=== PATIENT | female | born 1955 | race Caucasian/White ===

== ENCOUNTER 2018-03-19 16:38 | Emergency (ER) | payer MEDICARE, MEDICAID ==
[~2018-03-19] VITALS: Ht 162.6 cm; Wt 120.6 kg
[~2018-03-19 16:38] MED LIST: ALBU18HF2 IH; CARCD120C PO; METF500T PO; PANT-47 PO
[2018-03-19 16:53] VITALS: BP 130/82
[2018-03-19 17:16] LABS: CLARITY,URINE SLIGHTLY CLOUDY (Clear); COLOR,URINE YELLOW (Yellow); GLUCOSE, URINE NEGATIVE (Neg); KETONES,URINE NEGATIVE (Neg); LEUKOCYTE ESTERASE ,URINE SMALL (Neg); NITRITES, URINE NEGATIVE (Neg); OCCULT BLOOD,URINE SMALL (Neg); PROTEIN,URINE NEGATIVE (Neg); UROBILINOGEN,URINE 0.2 E.U/dL (0.2-1.0)
[2018-03-19 17:18] LABS: UA COLLECTION TYPE CLN CATCH MIDSTREAM
[2018-03-19 17:23] LABS: BACTERIA,URINE FEW /HPF (Neg); MUCUS STRANDS FEW /LPF (Neg); RBC,URINE 0-2 /HPF (0-2); SQUAMOUS EPITHELIAL CELL,UR MODERATE /LPF (FEW)
[2018-03-19] MEDS ORDERED: PHEN-716 PO (17:35)
[2018-03-19] MEDS ORDERED: NITR100C6 PO (17:35)
== END 2018-03-19 17:55 | disposition home or self-care (01) ==
LOC: ER 16:39
DX: N39.0 Urinary tract infection, site not specified (principal); I25.2 Old myocardial infarction; I10 Essential (primary) hypertension; J44.9 Chronic obstructive pulmonary disease, unspecified; K21.9 Gastro-esophageal reflux disease without esophagitis; F12.90 Cannabis use, unspecified, uncomplicated; E11.9 Type 2 diabetes mellitus without complications; Z88.0 Allergy status to penicillin; Z79.84 Long term (current) use of oral hypoglycemic drugs
CPT/HCPCS: 81001; 87088; 99284; J7070

== ENCOUNTER 2018-04-13 16:44 | Emergency (ER) | payer MEDICARE, MEDICAID ==
[~2018-04-13] VITALS: Ht 162.6 cm; Wt 122.0 kg
[~2018-04-13 16:44] MED LIST changes: +NITR100C6 PO; +PHEN-716 PO
[2018-04-13 17:35] LABS: CLARITY,URINE Cloudy (Clear); COLOR,URINE Yellow (Yellow); GLUCOSE, URINE Negative (Neg); KETONES,URINE Negative (Neg); LEUKOCYTE ESTERASE ,URINE Large (Neg); NITRITES, URINE Negative (Neg); OCCULT BLOOD,URINE Trace (Neg); PH,URINE 5.5 (4.8-8.0); PROTEIN,URINE Negative (Neg)
[2018-04-13 17:36] LABS: URINE HCG NEGATIVE (NEG)
[2018-04-13 17:40] LABS: UA COLLECTION TYPE CLN CATCH MIDSTREAM
[2018-04-13 17:47] LABS: WBC,URINE 30-50 /HPF (0-4)
[2018-04-13 17:49] LABS: BACTERIA,URINE 4+ /HPF (Neg); MUCUS STRANDS MODERATE /LPF (Neg); RBC,URINE 0-2 /HPF (0-2); SQUAMOUS EPITHELIAL CELL,UR MANY /LPF (FEW)
[2018-04-13] MEDS ORDERED: CIPR-259 PO (18:28)
[2018-04-13 18:32] VITALS: BP 178/94
== END 2018-04-13 18:35 | disposition home or self-care (01) ==
LOC: ER 16:44
DX: R30.0 Dysuria (principal); R35.0 Frequency of micturition; F12.90 Cannabis use, unspecified, uncomplicated; I10 Essential (primary) hypertension; J44.9 Chronic obstructive pulmonary disease, unspecified; E11.9 Type 2 diabetes mellitus without complications; K21.9 Gastro-esophageal reflux disease without esophagitis; I25.2 Old myocardial infarction; M19.90 Unspecified osteoarthritis, unspecified site; Z95.0 Presence of cardiac pacemaker; Z88.0 Allergy status to penicillin; Z79.84 Long term (current) use of oral hypoglycemic drugs; Z79.899 Other long term (current) drug therapy
CPT/HCPCS: 81001; 81025; 99283

== ENCOUNTER 2018-09-16 00:28 | Emergency (ER) | payer MEDICARE, MEDICAID ==
[~2018-09-16] VITALS: Ht 162.6 cm; Wt 125.0 kg
[~2018-09-16 00:28] MED LIST changes: +PRED20TA PO
[2018-09-16 00:34] VITALS: BP 155/85
[2018-09-16] MEDS ORDERED: ketorolac trometh inj. 60 MG/2 ML VIAL IM ONE (00:55)
[2018-09-16] MEDS ORDERED: VAL5T PO (01:03)
== END 2018-09-16 01:25 | disposition home or self-care (01) ==
LOC: ER 00:29
DX: M43.6 Torticollis (principal); M62.838 Other muscle spasm; I25.10 Atherosclerotic heart disease of native coronary artery without angina pectoris; E78.00 Pure hypercholesterolemia, unspecified; I10 Essential (primary) hypertension; I25.2 Old myocardial infarction; J44.9 Chronic obstructive pulmonary disease, unspecified; K21.9 Gastro-esophageal reflux disease without esophagitis; E11.9 Type 2 diabetes mellitus without complications; M19.90 Unspecified osteoarthritis, unspecified site; F12.90 Cannabis use, unspecified, uncomplicated; Z87.891 Personal history of nicotine dependence; Z95.1 Presence of aortocoronary bypass graft; Z88.0 Allergy status to penicillin; Z79.899 Other long term (current) drug therapy
CPT/HCPCS: 96372; 99283; J1885

== ENCOUNTER 2018-09-18 16:31 | Emergency (ER) | payer MEDICARE, MEDICAID ==
[~2018-09-18] VITALS: Ht 162.6 cm; Wt 12.3 kg
[~2018-09-18 16:31] MED LIST changes: -PRED20TA PO; +VAL5T PO
[2018-09-18 17:01] VITALS: BP 162/80
[2018-09-18] MEDS ORDERED: proCHLORperazine 10 MG/2 ml inj IM ONE (18:25)
[2018-09-18] MEDS ORDERED: diphenhydrAMINE 25mg capsule PO ONE (18:25)
[2018-09-18] MEDS ORDERED: ORPH100T2 PO (18:35)
== END 2018-09-18 18:44 | disposition home or self-care (01) ==
LOC: ER 16:32
DX: G54.2 Cervical root disorders, not elsewhere classified (principal); I25.10 Atherosclerotic heart disease of native coronary artery without angina pectoris; E78.00 Pure hypercholesterolemia, unspecified; I10 Essential (primary) hypertension; I25.2 Old myocardial infarction; J44.9 Chronic obstructive pulmonary disease, unspecified; K21.9 Gastro-esophageal reflux disease without esophagitis; E11.9 Type 2 diabetes mellitus without complications; M19.90 Unspecified osteoarthritis, unspecified site; F12.90 Cannabis use, unspecified, uncomplicated; Z95.1 Presence of aortocoronary bypass graft; Z88.0 Allergy status to penicillin; Z79.84 Long term (current) use of oral hypoglycemic drugs; Z79.899 Other long term (current) drug therapy
CPT/HCPCS: 96372; 99283; J0780; Q0163

== ENCOUNTER 2018-10-14 19:26 | Emergency (ER) | payer MEDICARE, MEDICAID ==
[~2018-10-14] VITALS: Ht 162.6 cm; Wt 126.3 kg
[~2018-10-14 19:26] MED LIST changes: +ORPH100T2 PO
[2018-10-14 19:47] VITALS: BP 163/88
--- NOTE | 2018-10-14 22:29 | NUR ---
REGISTRATION ADVISED ME THAT PT IS WANTING TO LEAVE. AWARE.
[2018-10-15] MEDS ORDERED: CYCL-1 PO (18:25)
== END 2018-10-14 23:38 | disposition left against medical advice (07) ==
LOC: ER 19:26
DX: R51 Headache (principal); Z53.21 Procedure and treatment not carried out due to patient leaving prior to being seen by health care provider

== ENCOUNTER 2018-10-15 16:04 | Emergency (ER) | payer MEDICARE, MEDICAID ==
[~2018-10-15] VITALS: Ht 162.6 cm; Wt 126.3 kg
[2018-10-15 16:37] VITALS: BP 176/78
[2018-10-15] MEDS ORDERED: CYCL-1 PO (18:25)
[2018-10-15] MEDS ORDERED: morphine 4 MG/ML inj SYRINge IM ONE (18:35)
[2018-10-15] MEDS ORDERED: cyclobenzaprine 10mg tablet PO ONE (18:35)
[2018-10-15] MEDS ORDERED: ketorolac trometh. 30mg/ml inj. IM ONE (18:35)
== END 2018-10-15 19:29 | disposition home or self-care (01) ==
LOC: ER 16:04
DX: M54.2 Cervicalgia (principal); G43.909 Migraine, unspecified, not intractable, without status migrainosus; I25.10 Atherosclerotic heart disease of native coronary artery without angina pectoris; E78.00 Pure hypercholesterolemia, unspecified; I10 Essential (primary) hypertension; I25.2 Old myocardial infarction; J44.9 Chronic obstructive pulmonary disease, unspecified; K21.9 Gastro-esophageal reflux disease without esophagitis; E11.9 Type 2 diabetes mellitus without complications; M19.90 Unspecified osteoarthritis, unspecified site; F12.90 Cannabis use, unspecified, uncomplicated; Z90.89 Acquired absence of other organs; Z98.51 Tubal ligation status; Z87.891 Personal history of nicotine dependence; Z88.0 Allergy status to penicillin; Z79.84 Long term (current) use of oral hypoglycemic drugs; Z79.899 Other long term (current) drug therapy
CPT/HCPCS: 96372; 99283; J1885; J2270

== ENCOUNTER 2019-05-27 22:51 | Emergency (ER) | payer MEDICARE, MEDICAID ==
[~2019-05-27] VITALS: Ht 162.6 cm; Wt 119.0 kg
[~2019-05-27 22:51] MED LIST changes: +CYCL-1 PO; -VAL5T PO
[2019-05-27 22:53] VITALS: BP 160/91
[2019-05-27] MEDS ORDERED: ketorolac tromethamine 15mg/ml inj. IM ONE (23:20)
[2019-05-27] MEDS ORDERED: LIDOcaine 5% patch TP STA (23:20)
[2019-05-28] MEDS ORDERED: METH4TAB81 PO (17:06)
== END 2019-05-28 00:07 | disposition home or self-care (01) ==
LOC: ER 22:52
DX: M25.512 Pain in left shoulder (principal); R20.2 Paresthesia of skin; G43.909 Migraine, unspecified, not intractable, without status migrainosus; I25.10 Atherosclerotic heart disease of native coronary artery without angina pectoris; E78.00 Pure hypercholesterolemia, unspecified; I10 Essential (primary) hypertension; I25.2 Old myocardial infarction; J44.9 Chronic obstructive pulmonary disease, unspecified; K21.9 Gastro-esophageal reflux disease without esophagitis; E11.9 Type 2 diabetes mellitus without complications; M19.90 Unspecified osteoarthritis, unspecified site; F12.90 Cannabis use, unspecified, uncomplicated; Z98.51 Tubal ligation status; Z95.1 Presence of aortocoronary bypass graft; Z88.0 Allergy status to penicillin; Z79.84 Long term (current) use of oral hypoglycemic drugs; Z79.899 Other long term (current) drug therapy
CPT/HCPCS: 73030; 96372; 99283; J1885

== ENCOUNTER 2019-05-28 16:13 | Emergency (ER) | payer MEDICARE, MEDICAID ==
[~2019-05-28] VITALS: Ht 162.6 cm; Wt 119.5 kg
[2019-05-28 16:28] VITALS: BP 121/81
[2019-05-28] MEDS ORDERED: triamcinolone acetonide 40mg/ml inj IM ONE (17:00)
[2019-05-28] MEDS ORDERED: METH4TAB81 PO (17:06)
== END 2019-05-28 17:13 | disposition home or self-care (01) ==
LOC: ER 16:14
DX: M75.52 Bursitis of left shoulder (principal); G43.909 Migraine, unspecified, not intractable, without status migrainosus; I25.10 Atherosclerotic heart disease of native coronary artery without angina pectoris; E78.00 Pure hypercholesterolemia, unspecified; I10 Essential (primary) hypertension; I25.2 Old myocardial infarction; J44.9 Chronic obstructive pulmonary disease, unspecified; K21.9 Gastro-esophageal reflux disease without esophagitis; E11.9 Type 2 diabetes mellitus without complications; M19.90 Unspecified osteoarthritis, unspecified site; F12.90 Cannabis use, unspecified, uncomplicated; Z88.0 Allergy status to penicillin; Z79.899 Other long term (current) drug therapy; Z90.89 Acquired absence of other organs; Z98.51 Tubal ligation status; Z87.09 Personal history of other diseases of the respiratory system; Z95.1 Presence of aortocoronary bypass graft
CPT/HCPCS: 96372; 99283; J3301

== ENCOUNTER 2019-11-13 08:27 | Day surgery (SDC) | payer MEDICARE, MEDICAID ==
[2019-11-07 16:50] LABS: BASOPHILS # (AUTO) 0.1 X10'3 (0-0.2); BASOPHILS % (AUTO) 0.6 % (0-1); EOSINOPHILS # (AUTO) 0.2 X10'3 (0-0.9); EOSINOPHILS % (AUTO) 1.3 % (0-6); LYMPHOCYTES # (AUTO) 3.5 X10'3 (1.1-4.8); LYMPHOCYTES % (AUTO) 26.5 % (21-51); MEAN CORPUSCULAR HEMOGLOBIN 30.4 PG (27.0-31.0); MEAN CORPUSCULAR VOLUME 92.1 FL (78-98); MEAN PLATELET VOLUME 8.2 FL (7.4-10.4); MONOCYTES # (AUTO) 1.1 X10'3 (0-0.9); MONOCYTES % (AUTO) 8.3 % (2-12); NEUTROPHILS # (AUTO) 8.4 X10'3 (1.8-7.7); NEUTROPHILS % (AUTO) 63.3 % (42-75); PRE OP HEMATOCRIT 41.4 % (35.0-45.0); PRE OP HEMOGLOBIN 13.7 g/dL (12.0-16.0); PRE OP PLATELET COUNT 309 X10'3 (140-440); RED BLOOD COUNT 4.49 X10'6 (4.20-5.60); RED CELL DISTRIBUTION WIDTH 13.6 % (11.5-14.5)
[2019-11-07 17:01] LABS: ALBUMIN 3.8 G/DL (3.4-5.0); ALKALINE PHOSPHATASE 99 IU/L (46-116); BLOOD UREA NITROGEN 12 MG/DL (7-18); BUN/CREATININE RATIO 14.8 (6.6-38.0); CALCIUM 9.2 MG/DL (8.5-10.1); CHLORIDE 104 MMOL/L (99-107); CREATININE 0.81 MG/DL (0.40-0.90); PRE OP ALT 42 U/L (30-65); PRE OP ANION GAP 9 (8-16); PRE OP AST 28 U/L (10-37); PRE OP BILIRUB, TOTAL 0.7 MG/DL (0.0-1.0); PRE OP GLUCOSE 114 MG/DL (70-104); PRE OP POTASSIUM 4.5 MMOL/L (3.4-5.1); PRE OP SODIUM 141 MMOL/L (135-145); TOTAL PROTEIN 7.5 G/DL (6.4-8.2); eGFR 71 ML/MIN
[~2019-11-13] VITALS: Ht 162.6 cm; Wt 122.5 kg
[2019-11-13] VITALS (17 sets, daily range): BP systolic 95–153; BP diastolic 55–77
[~2019-11-13 08:27] MED LIST changes: +ATOR10TA70 PO; -CYCL-1 PO; +GENTAMICIN IV ONE; +LISI10TA4 PO; -NITR100C6 PO; +NORMAL SALINE IV ONE; -ORPH100T2 PO; -PANT-47 PO; -PHEN-716 PO; +albuterol 2.5 MG/3 ML nebule NEB ONE; +clindamycin-Cleocin 900mg/D5W 50 ML IV ONE; +famotidine 10mg tablet PO ONE; +ringers solution, lacted 1,000 ML IV SCH
[2019-11-13] MEDS ORDERED: ringers solution, lacted 1,000 ML IV SCH (10:05)
[2019-11-13] MEDS ORDERED: morphine 4 MG/ML inj SYRINge IV PRN ×2 (10:05)
[2019-11-13] MEDS ORDERED: acetaminophen 1,000mg/100ml IV 100 ML IV PRN (10:05)
[2019-11-13] MEDS ORDERED: labetalol 20mg/4ml (5mg/ml) syringe IV PRN (10:05)
[2019-11-13] MEDS ORDERED: meperidine/PF 25mg/ml syringe IV PRN ×2 (10:05)
[2019-11-13] MEDS ORDERED: proMETHazine 25mg rectal suppository RC PRN (10:05)
[2019-11-13] MEDS ORDERED: hydrALAZINE 20mg/ml inj. IV PRN (10:05)
[2019-11-13] MEDS ORDERED: ondansetron/PF 4mg/2ml inj IV PRN ×2 (10:05→13:10)
[2019-11-13] MEDS ORDERED: proCHLORperazine 10 MG/2 ml inj IV PRN (10:05)
[2019-11-13] MEDS ORDERED: ceFAZolin 1000mg inj ONE (11:20)
[2019-11-13] MEDS ORDERED: clindamycin phosphate 40gm vag cream ONE (11:20)
[2019-11-13] MEDS ORDERED: vasoPRESSIN 20 units/ml inj. ONE (11:21)
[2019-11-13] MEDS ORDERED: sevoflurane 250ml liquid IH ONE (11:28)
[2019-11-13] MEDS ORDERED: midazolam 2 mg/2 ml injection ONE (11:33)
[2019-11-13] MEDS ORDERED: LIDOcaine 2% (20mg/ml) 5ml vial ONE (11:55)
[2019-11-13] MEDS ORDERED: propofol inj 20 ML IV ONE (11:55)
[2019-11-13] MEDS ORDERED: fentaNYL/PF 50MCG/1 ML 2ML syringe ONE (11:56)
[2019-11-13] MEDS ORDERED: dexamethasone sod phosphate 4mg/ml inj. ONE (12:03)
[2019-11-13] MEDS ORDERED: ondansetron/PF 4mg/2ml inj ONE (12:03)
[2019-11-13] MEDS ORDERED: fluoroscein sod 10% (100mg/ml) 5ml vial ONE (12:31)
[2019-11-13] MEDS ORDERED: furosemide 40mg/4ml inj ONE (12:56)
[2019-11-13] MEDS ORDERED: diphenhydrAMINE 50 mg/ml inj IV PRN (13:10)
[2019-11-13] MEDS ORDERED: naloxone 0.4 mg/ml inj IV PRN (13:10)
[2019-11-13] MEDS ORDERED: HYDROcodone/acetaminophen 5mg/325mg tablet PO PRN ×2 (13:10)
[2019-11-13] MEDS ORDERED: CADD PCA waste documentation MC PRN (13:10)
[2019-11-13] MEDS ORDERED: temazepam 15mg capsule PO PRN (13:10)
[2019-11-13] MEDS ORDERED: LORazepam 2 mg/ml vial IV PRN (13:10)
[2019-11-13] MEDS ORDERED: normal saline 500ml IV soln 500 ML IV PRN (13:10)
[2019-11-13] MEDS ORDERED: ketorolac trometh. 30mg/ml inj. IV PRN (13:10)
--- NOTE | 2019-11-13 13:15 | NUR ---
ARRIVED IN PACU VIA GURNEY FROM OR VIA BED WITH DR GILBERT IN ATTENDANCE. REPORT RECEIVED. VS STABLE. PT MOANING IN PAIN
[2019-11-13] MEDS ORDERED: HYDROmorphone/NS 1 mg/ml CADD 50 ML IV SCH (13:24)
[2019-11-13] MEDS: meperidine/PF 25mg/ml syringe IV PRN ×3 (13:30→13:48)
--- NOTE | 2019-11-13 13:41 | NUR ---
SLEEPING IN INTERVALS. PAIN IMPROVING.
[2019-11-13] MEDS: HYDROmorphone/NS 1 mg/ml CADD 50 ML IV SCH ×5 (14:11→23:00)
--- NOTE | 2019-11-13 14:15 | NUR ---
SLEEPING IN INTERVALS. ONLY C/O PAIN WHEN AROUSED. VS STABLE. REPORT TO FLOOR. TO 360B
--- NOTE | 2019-11-13 14:30 | NUR ---
Received report from ALLA Car in recovery and patient arrived to floor in room 360B, on 3 L of O2. VSS. patient reports moderate pain, educated pt. 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 will continue to monitor.
[2019-11-13] MEDS ORDERED: albuterol 2.5 MG/3 ML nebule NEB PRN (15:15)
[2019-11-13] MEDS: ringers solution, lacted 1,000 ML IV SCH ×2 (17:50→21:10)
--- NOTE | 2019-11-13 18:43 | NUR ---
Problems reprioritized. Patient report given, questions answered & plan of care reviewed with ALLA Olson and ALLA Colby.
[2019-11-13] MEDS: metFORMIN 500mg tablet PO SCH (19:40)
[2019-11-14 00:32] VITALS: BP 103/55
[2019-11-14] MEDS: HYDROmorphone/NS 1 mg/ml CADD 50 ML IV SCH ×5 (00:56→09:00)
[2019-11-14] MEDS: ringers solution, lacted 1,000 ML IV SCH ×2 (03:41→15:22)
[2019-11-14 06:06] LABS: BASOPHILS % (AUTO) 0.2 % (0-1); EOSINOPHILS % (AUTO) 0 % (0-6); HEMATOCRIT 30.6 % (35.0-45.0); HEMOGLOBIN 10.1 g/dl (12.0-16.0); LYMPHOCYTES # (AUTO) 1.2 X10'3 (1.1-4.8); LYMPHOCYTES % (AUTO) 8.4 % (21-51); MEAN CORPUSCULAR HEMOGLOBIN 30.7 PG (27.0-31.0); MEAN CORPUSCULAR HGB CONC 33.2 g/dL (33.0-36.5); MEAN CORPUSCULAR VOLUME 92.5 FL (78-98); MEAN PLATELET VOLUME 8.7 FL (7.4-10.4); MONOCYTES # (AUTO) 0.5 X10'3 (0-0.9); MONOCYTES % (AUTO) 3.7 % (2-12); NEUTROPHILS # (AUTO) 12.9 X10'3 (1.8-7.7); NEUTROPHILS % (AUTO) 87.7 % (42-75); PLATELET COUNT 225 X10'3 (140-440); RED CELL DISTRIBUTION WIDTH 13.2 % (11.5-14.5); WHITE BLOOD COUNT 14.7 X10'3 (4.5-11.0)
[2019-11-14 06:08] LABS: ALANINE AMINOTRANSFERASE 41 U/L (12-78); ALBUMIN 2.9 G/DL (3.4-5.0); ALBUMIN/GLOBULIN RATIO 0.9 (1.1-1.5); ALKALINE PHOSPHATASE 75 IU/L (46-116); ANION GAP 7 (8-16); ASPARTATE AMINO TRANSFERASE 25 U/L (10-37); BILIRUBIN,TOTAL 0.5 MG/DL (0.1-1.0); BLOOD UREA NITROGEN 16 MG/DL (7-18); BUN/CREATININE RATIO 15.7 (6.6-38.0); CALCIUM 8.3 MG/DL (8.5-10.1); CHLORIDE 104 MMOL/L (99-107); CREATININE 1.02 MG/DL (0.40-0.90); GLUCOSE 168 MG/DL (70-104); POTASSIUM 4.8 MMOL/L (3.5-5.1); SODIUM 137 MMOL/L (135-145); TOTAL CARBON DIOXIDE 26.1 MMOL/L (24-32); eGFR 55 ML/MIN
--- NOTE | 2019-11-14 06:15 | NUR ---
Problems reprioritized. Patient report given, questions answered & plan of care reviewed with Jody rn.
--- NOTE | 2019-11-14 06:16 | NUR ---
Problems reprioritized. Patient report given, questions answered & plan of care reviewed with Ericka RN.
--- NOTE | 2019-11-14 06:16 | NUR ---
Patient in room [facility] 360. I have received report from ALLA Olson and had the opportunity to ask questions and assume patient care.
[2019-11-14 07:45] VITALS: BP 156/70
[2019-11-14] MEDS: metFORMIN 500mg tablet PO SCH (07:54)
[2019-11-14] MEDS ORDERED: lisinopril 10 MG tablet PO SCH (08:00)
[2019-11-14] MEDS ORDERED: atorvastatin 10mg tablet PO SCH (08:00)
[2019-11-14] MEDS ORDERED: diltiazem CD 120mg capsule (once-daily) PO SCH (08:00)
--- NOTE | 2019-11-14 09:00 | NUR ---
patient ambulating X3 this am, voided 100 cc, bladder scan now shows 10 mL residual in bladder. Instructed patient that each time she ambulates, she will need to void directly after and notify staff to check her residual.
[2019-11-14 12:00] VITALS: BP 124/58
== END 2019-11-14 17:46 | disposition home or self-care (01) ==
LOC: PAS 08:27 → SUR 3N 13:10 → PAS 11-14 17:46
PROVIDERS: ATTEND Specialist
DX: N81.11 Cystocele, midline (principal); N81.6 Rectocele; N39.3 Stress incontinence (female) (male); N36.42 Intrinsic sphincter deficiency (ISD); M19.90 Unspecified osteoarthritis, unspecified site; E11.9 Type 2 diabetes mellitus without complications; I25.2 Old myocardial infarction; I10 Essential (primary) hypertension; J44.9 Chronic obstructive pulmonary disease, unspecified; G43.909 Migraine, unspecified, not intractable, without status migrainosus; E66.9 Obesity, unspecified; Z68.42 Body mass index [BMI] 45.0-49.9, adult; F17.210 Nicotine dependence, cigarettes, uncomplicated; Z98.51 Tubal ligation status; Z79.899 Other long term (current) drug therapy; Z98.890 Other specified postprocedural states; Z79.01 Long term (current) use of anticoagulants; Z79.84 Long term (current) use of oral hypoglycemic drugs; Z88.0 Allergy status to penicillin; Z83.3 Family history of diabetes mellitus; Z82.49 Family history of ischemic heart disease and other diseases of the circulatory system
CPT/HCPCS: 36415; 57260; 57288; 80053; 82948; 85025; 85610; 85730; 86885; 86900; 86901; 87081; 94760; C1771; J0690; J1100; J1170; J1580; J1885; J1940; J2001; J2175; J2250; J2405; J2704; J3010; J7120; 88302; A4215; A4314; A4355; A4618; A6250; A7000; G0378; J3490

== ENCOUNTER 2020-06-15 20:12 | Emergency (ER) | payer MEDICARE, MEDICAID ==
[~2020-06-15] VITALS: Ht 162.6 cm; Wt 125.7 kg
[~2020-06-15 20:12] MED LIST changes: -GENTAMICIN IV ONE; -NORMAL SALINE IV ONE; -albuterol 2.5 MG/3 ML nebule NEB ONE; -clindamycin-Cleocin 900mg/D5W 50 ML IV ONE; -famotidine 10mg tablet PO ONE; -ringers solution, lacted 1,000 ML IV SCH
[2020-06-15] MEDS ORDERED: ketorolac tromethamine 15mg/ml inj. IM ONE (20:30)
[2020-06-15] MEDS ORDERED: orphenadrine citrate 60mg/2ml inj. IM ONE (20:30)
[2020-06-15] MEDS ORDERED: ORPH100T2 PO (20:45)
[2020-06-15 21:31] VITALS: BP 136/81
== END 2020-06-15 21:32 | disposition home or self-care (01) ==
LOC: ER 20:12
DX: M54.41 Lumbago with sciatica, right side (principal); I25.10 Atherosclerotic heart disease of native coronary artery without angina pectoris; E78.00 Pure hypercholesterolemia, unspecified; I10 Essential (primary) hypertension; I25.2 Old myocardial infarction; J44.9 Chronic obstructive pulmonary disease, unspecified; K21.9 Gastro-esophageal reflux disease without esophagitis; E11.9 Type 2 diabetes mellitus without complications; M19.90 Unspecified osteoarthritis, unspecified site; F12.90 Cannabis use, unspecified, uncomplicated; Z98.51 Tubal ligation status; Z98.890 Other specified postprocedural states; Z88.0 Allergy status to penicillin; Z79.899 Other long term (current) drug therapy
CPT/HCPCS: 96372; 99284; J1885; J2360

== ENCOUNTER 2020-09-14 17:16 | Emergency (ER) | payer MEDICARE, MEDICAID ==
[~2020-09-14] VITALS: Ht 162.6 cm; Wt 122.0 kg
[~2020-09-14 17:16] MED LIST changes: +ORPH100T2 PO
[2020-09-14 17:33] VITALS: BP 161/82
[2020-09-14] MEDS ORDERED: ketorolac trometh. 30mg/ml inj. IM ONE (18:15)
[2020-09-14] MEDS ORDERED: cyclobenzaprine 10mg tablet PO ONE (18:15)
== END 2020-09-14 18:46 | disposition home or self-care (01) ==
LOC: ER 17:17
DX: M62.838 Other muscle spasm (principal); G43.909 Migraine, unspecified, not intractable, without status migrainosus; I25.10 Atherosclerotic heart disease of native coronary artery without angina pectoris; E78.00 Pure hypercholesterolemia, unspecified; I10 Essential (primary) hypertension; K21.9 Gastro-esophageal reflux disease without esophagitis; E11.9 Type 2 diabetes mellitus without complications; M19.90 Unspecified osteoarthritis, unspecified site; F12.90 Cannabis use, unspecified, uncomplicated; J44.9 Chronic obstructive pulmonary disease, unspecified; Z90.79 Acquired absence of other genital organ(s); Z98.51 Tubal ligation status; Z95.5 Presence of coronary angioplasty implant and graft; Z88.0 Allergy status to penicillin; Z79.899 Other long term (current) drug therapy
CPT/HCPCS: 96372; 99283; J1885

== ENCOUNTER 2021-02-08 11:45 | Emergency (ER) | payer MEDICARE, MEDICAID ==
[~2021-02-08] VITALS: Ht 162.6 cm; Wt 123.1 kg
[~2021-02-08 11:45] MED LIST changes: +LISI10TA27 PO; -LISI10TA4 PO
[2021-02-08 12:00] VITALS: BP 149/80
--- NOTE | 2021-02-08 12:45 | NUR ---
PT REQUEST TO STAY IN W/C PER COMFORT.
[2021-02-08] MEDS ORDERED: HYDROcodone/acetaminophen 5mg/325mg tablet PO ONE (13:20)
[2021-02-08] MEDS ORDERED: ondansetron 4mg rapidly disintigrating tab PO ONE (13:20)
[2021-02-08] MEDS ORDERED: ketorolac tromethamine 15mg/ml inj. IV ONE (13:20)
[2021-02-08] MEDS ORDERED: TRAM50TA2 PO (13:31)
[2021-02-08] MEDS ORDERED: IBUP-1984 PO (13:31)
== END 2021-02-08 13:54 | disposition home or self-care (01) ==
LOC: ER 11:46
DX: M25.462 Effusion, left knee (principal); G43.909 Migraine, unspecified, not intractable, without status migrainosus; I25.10 Atherosclerotic heart disease of native coronary artery without angina pectoris; E78.00 Pure hypercholesterolemia, unspecified; I10 Essential (primary) hypertension; I25.2 Old myocardial infarction; J44.9 Chronic obstructive pulmonary disease, unspecified; K21.9 Gastro-esophageal reflux disease without esophagitis; E11.9 Type 2 diabetes mellitus without complications; M19.90 Unspecified osteoarthritis, unspecified site; F12.90 Cannabis use, unspecified, uncomplicated; Z90.89 Acquired absence of other organs; Z98.51 Tubal ligation status; Z95.1 Presence of aortocoronary bypass graft; Z72.89 Other problems related to lifestyle; Z88.0 Allergy status to penicillin; Z79.899 Other long term (current) drug therapy; Z79.84 Long term (current) use of oral hypoglycemic drugs
CPT/HCPCS: 29505; 73564; 96374; 99283; J1885

== ENCOUNTER 2023-04-02 00:21 | Emergency (ER) | payer MEDICARE, MEDICAID ==
[~2023-04-02] VITALS: Ht 162.6 cm; Wt 117.6 kg
[~2023-04-02 00:21] MED LIST changes: -ORPH100T2 PO; +ORPH100T4 PO
[2023-04-02 02:25] LABS: BASOPHILS # (AUTO) 0.1 X10'3 (0-0.2); BASOPHILS % (AUTO) 0.6 % (0-1); EOSINOPHILS # (AUTO) 0.1 X10'3 (0-0.9); EOSINOPHILS % (AUTO) 1.3 % (0-6); HEMATOCRIT 39.2 % (35.0-45.0); HEMOGLOBIN 12.7 g/dl (12.0-16.0); LYMPHOCYTES % (AUTO) 26.4 % (21-51); MEAN CORPUSCULAR HEMOGLOBIN 29.9 PG (27.0-31.0); MEAN CORPUSCULAR HGB CONC 32.5 g/dL (33.0-36.5); MEAN CORPUSCULAR VOLUME 92.1 FL (78-98); MEAN PLATELET VOLUME 8.5 FL (7.4-10.4); MONOCYTES # (AUTO) 0.9 X10'3 (0-0.9); NEUTROPHILS # (AUTO) 7.3 X10'3 (1.8-7.7); NEUTROPHILS % (AUTO) 63.7 % (42-75); PLATELET COUNT 197 X10'3 (140-440); RED BLOOD COUNT 4.25 X10'6 (4.20-5.60); WHITE BLOOD COUNT 11.5 X10'3 (4.5-11.0)
[2023-04-02] MEDS ORDERED: TIOT18CA3 INH (02:42)
[2023-04-02 02:59] LABS: ALANINE AMINOTRANSFERASE 25 U/L (12-78); ALBUMIN 3.8 G/DL (3.4-5.0); ALBUMIN/GLOBULIN RATIO 1.1 (1.1-1.5); ALKALINE PHOSPHATASE 94 IU/L (46-116); ANION GAP 8 (8-16); ASPARTATE AMINO TRANSFERASE 17 U/L (10-37); BILIRUBIN,TOTAL 0.6 MG/DL (0.1-1.0); BLOOD UREA NITROGEN 16 MG/DL (7-18); BUN/CREATININE RATIO 17.4 (10.0-20.0); CHLORIDE 102 MMOL/L (99-107); CREATININE 0.92 MG/DL (0.40-0.90); GLUCOSE 151 MG/DL (70-104); POTASSIUM 4.1 MMOL/L (3.5-5.1); SODIUM 137 MMOL/L (135-145); TOTAL CARBON DIOXIDE 26.7 MMOL/L (24-32); TOTAL PROTEIN 7.3 G/DL (6.4-8.2); eGFR 61 ML/MIN
--- NOTE | 2023-04-02 03:31 | NUR ---
Dr Mendez was in with the patient and exited the room and informed me that the patient is going to sign out AMA. ALLA Trujillo made aware and form given to her.
--- NOTE | 2023-04-02 03:41 | NUR ---
PT WANTS TO LEAVE AMA, VERBALIZES UNDERSTANDING RISKS OF AMA UP TO AND INCLUDING , PT AWARE SHE CAN COME BACK ANY TIME. HAS RIDE HOME WITH FAMILY
[2023-04-02 03:43] VITALS: BP 136/83
== END 2023-04-02 03:45 | disposition left against medical advice (07) ==
LOC: ER 00:22
DX: R07.89 Other chest pain (principal); G43.909 Migraine, unspecified, not intractable, without status migrainosus; I10 Essential (primary) hypertension; E78.00 Pure hypercholesterolemia, unspecified; J44.9 Chronic obstructive pulmonary disease, unspecified; K21.9 Gastro-esophageal reflux disease without esophagitis; E11.9 Type 2 diabetes mellitus without complications; M19.90 Unspecified osteoarthritis, unspecified site; F12.90 Cannabis use, unspecified, uncomplicated; Z88.0 Allergy status to penicillin; Z98.51 Tubal ligation status
CPT/HCPCS: 36415; 71045; 80053; 83880; 84484; 85025; 93005; 99285

== ENCOUNTER 2025-02-18 07:32 | Emergency (ER) | payer MEDICARE, MEDICAID ==
[~2025-02-18] VITALS: Ht 162.6 cm; Wt 105.0 kg
[~2025-02-18 07:32] MED LIST changes: -ALBU18HF2 IH; -ORPH100T4 PO; +TIOT18CA3 INH
--- NOTE | 2025-02-18 07:46 | ELECTROCARDIOGRAPH REPORT ---
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 Livan Moran Measurements Intervals [place] Rate: 82 P: 54 TN: 122 QRS: 70 QRSD: 71 T: 118 QT: 457 QTc: 534 Interpretive Statements Sinus rhythm Low voltage, precordial leads Nonspecific T abnormalities, lateral leads Prolonged QT interval Electronically Signed On 02-18-2025 18:28:[address] Livan Moran Please click the below link to view image of tracing.
[2025-02-18] MEDS: aspirin 81mg tab.chew PO ONE (07:47)
[2025-02-18 08:00] VITALS: TEMP 98.1
--- NOTE | 2025-02-18 08:29 | RADIOLOGY REPORT ---
DI CHEST,SINGLE VIEW, HISTORY: CP COMPARISON: CHEST,SINGLE VIEW on DOS: 04/02/23 CHEST,SINGLE VIEW on DOS: 04/02/23 TECHNICAL DATA: 1 view of the chest was obtained. FINDINGS: Lines and tubes: None Cardiomediastinal silhouette: normal Pulmonary vasculature: normal Lung expansion: normal Lung airspace: normal Lung interstitium: normal Pleura: normal Pneumothorax: no Bones: Unremarkable Other: no IMPRESSION: No acute intrathoracic abnormality.
[2025-02-18 08:48] LABS: BASOPHILS # (AUTO) 0.1 X10'3 (0-0.2); BASOPHILS % (AUTO) 0.8 % (0-1); EOSINOPHILS # (AUTO) 0.1 X10'3 (0-0.9); EOSINOPHILS % (AUTO) 1.3 % (0-6); HEMATOCRIT 35.3 % (35.0-45.0); LYMPHOCYTES % (AUTO) 23.8 % (21-51); MEAN CORPUSCULAR HEMOGLOBIN 31.1 PG (27.0-31.0); MEAN CORPUSCULAR HGB CONC 34.1 g/dL (33.0-36.5); MEAN CORPUSCULAR VOLUME 91.1 FL (78-98); MEAN PLATELET VOLUME 7.9 FL (7.4-10.4); MONOCYTES # (AUTO) 0.7 X10'3 (0-0.9); MONOCYTES % (AUTO) 8.1 % (2-12); NEUTROPHILS # (AUTO) 5.6 X10'3 (1.8-7.7); PLATELET COUNT 234 X10'3 (140-440); RED BLOOD COUNT 3.87 X10'6 (4.20-5.60); RED CELL DISTRIBUTION WIDTH 15.1 % (11.5-14.5); WHITE BLOOD COUNT 8.5 X10'3 (4.5-11.0)
[2025-02-18 09:10] LABS: ALANINE AMINOTRANSFERASE 14 U/L (12-78); ALBUMIN 3.1 G/DL (3.4-5.0); ALKALINE PHOSPHATASE 90 IU/L (46-116); ANION GAP 8 (8-16); ASPARTATE AMINO TRANSFERASE 11 U/L (10-37); BILIRUBIN,TOTAL 0.3 MG/DL (0.1-1.0); BLOOD UREA NITROGEN 13 MG/DL (7-18); BUN/CREATININE RATIO 19.7 (10.0-20.0); CHLORIDE 107 MMOL/L (99-107); CREATININE 0.66 MG/DL (0.40-0.90); GLUCOSE 180 MG/DL (70-104); POTASSIUM 3.7 MMOL/L (3.5-5.1); PRO BRAIN NATRIURETIC PEPTIDE 96 PG/ML (0-125); SODIUM 140 MMOL/L (135-145); TOTAL CARBON DIOXIDE 24.9 MMOL/L (24-32); TOTAL PROTEIN 6.1 G/DL (6.4-8.2); eCRCL 70 ML/MIN; eGFR 89 ML/MIN
--- NOTE | 2025-02-18 09:36 | Physician Documentation ---
History of Present Illness ~ Chief Complaint: Chest Pain Stated Complaint: CP Time Seen by MD: 07:47 OK to notify your PCP?: Yes Primary Medical Doctor: [facility] Mode of Arrival: POV HPI 69-year-old female patient with a history of diabetes, COPD asthma, hypertension, dyslipidemia came to the emergency room for evaluation of retrosternal sharp chest pain without any radiation since 01:00. The pain is on and off. No nausea vomiting diarrhea and diaphoresis and shortness a breath with this. No fever no chills. Medication Reconciliation Allergies: Coded Allergies: Penicillins (Verified Allergy, Severe, CANT BREATHE, 06/15/20) Scheduled Atorvastatin Calcium (Atorvastatin Calcium), 1 TAB PO QAM, (Reported) Diltiazem Hcl CD* (Cardizem CD*), 1 CAP PO QAM, (Reported) Famotidine (Famotidine), 1 TAB PO HS Lisinopril (Lisinopril), 1 TAB PO QPM, (Reported) Metformin Hcl* (Glucophage*), 2 TAB PO BID, (Reported) Tiotropium [place] (Spiriva), 2 PUFFS INH DAILY, (Reported) Past Medical History Past Medical History: Migraine, Coronary Artery Disease, High Cholesterol, Hypertension, Myocardial Infarction, Asthma, Bronchitis, COPD, GERD, Diabetes, Arthritis Past Surgical History: tonsillectomy, tubal ligation Other Past Family History: Coronary bypass surgery Alcohol Use: Sober Drug Use: marijuana Lives with: Family Lives In: Home Occupation: retired Review of Systems ROS As stated above in the HPI, otherwise all systems are reviewed and negative. Physical Exam Vital Signs: Temperature: 98.8, Source: Oral, Heart Rate: 89, Respiratory Rate: 22, BP: 148/79, Pulse Oximetry: 98, Weight: 105.000 Oxygen Flow Rate: 0 Physical Exam Reviewed vital signs and they are well within normal range. Const: Well built well nourished adult female Head: Atraumatic Eyes: Normal Conjunctiva ENT: Normal External Ears, Nose and Mouth. Moist mucous membranes Neck: Full range of motion. No meningismus Resp: Clear to auscultation bilaterally. Normal work of breathing Cardio: Regular rate and rhythm, no murmurs. Skin well perfused Abd: Soft, non-tender, non-distended. Normal bowel sounds. No rebound or guarding Skin: No petechiae or rashes. Warm and dry Back: No midline or flank tenderness Ext: No cyanosis, or edema Neuro: Awake and alert Psych: Normal Mood and Affect Progress Results/Orders Results/Orders Orders - DINORAH AVILES MD Chest,Single View (02/18/25 07:40) Monitor (02/18/25 07:40) Saline Lock (02/18/25 07:40) Oxygen (02/18/25 07:40) Completed Orders - DINORAH AVILES MD Chest,Single View (02/18/25 07:40) Aspirin 81mg Chew Tablet (Aspirin 81mg C (02/18/25 07:40) Electrocardiogram (02/18/25 07:40) Hs Troponin I W Calculations (02/18/25 09:40) Cbc/Diff (02/18/25 08:32) Hs Troponin I W Calculations (02/18/25 08:32) CMP (02/18/25 08:32) PBNP (02/18/25 08:32) Mag & Alum Hydrox/Simeth Susp (Maalox Or (02/18/25 09:30) Lidocaine 2% Viscous (Xylocaine 2% Visco (02/18/25 09:30) Famotidine Tablet (Pepcid Tablet) (02/18/25 09:30) Medications Received in ER Medications (Trade) Dose Ordered Sig/Latrice Route PRN Reason Start Time Stop Time Status Last Admin Dose Admin (aspirin 81MG chew tablet) 324 mg ONCE ONCE PO 02/18/25 07:40 02/18/25 07:41 DC 02/18/25 07:47 324 MG (Maalox oral suspension) 30 ml ONCE ONCE PO 02/18/25 09:30 02/18/25 09:31 DC 02/18/25 09:51 30 ML (Xylocaine 2% Viscous 15mL cup) 15 ml ONCE ONCE MM 02/18/25 09:30 02/18/25 09:31 DC 02/18/25 09:50 15 ML (Pepcid tablet) 40 mg ONCE ONCE PO 02/18/25 09:30 02/18/25 09:31 DC 02/18/25 09:51 40 MG Vital Signs 02/18/25 02/18/25 02/18/25 07:36 07:55 07:58 Temp 98.8 Pulse 89 Resp 16 22 B/P (MAP) 148/79 Pulse Ox 98 98 O2 Delivery Room Air* O2 Flow Rate 0 0 FiO2 N/A Laboratory Tests Test 02/18/25 08:06 02/18/25 08:32 02/18/25 08:38 02/18/25 09:37 CBC Comment Chemistry Comments Glucometer 183 H White Blood Count 8.5 Red Blood Count 3.87 L Hemoglobin 12.0 Hematocrit 35.3 Mean Corpuscular Volume 91.1 Mean Corpuscular Hemoglobin 31.1 H Mean Corpuscular Hemoglobin Concent 34.1 Red Cell Distribution Width 15.1 H Platelet Count 234 Mean Platelet Volume 7.9 Neutrophils (%) (Auto) 66.0 Lymphocytes (%) (Auto) 23.8 Monocytes (%) (Auto) 8.1 Eosinophils (%) (Auto) 1.3 Basophils (%) (Auto) 0.8 Neutrophils # (Auto) 5.6 Lymphocytes # (Auto) 2.0 Monocytes # (Auto) 0.7 Eosinophils # (Auto) 0.1 Basophils # (Auto) 0.1 Sodium Level 140 Potassium Level 3.7 Chloride Level 107 Carbon Dioxide Level 24.9 Anion Gap 8 Blood Urea Nitrogen 13 Creatinine 0.66 Estimated GFR/1.73 m2 89 BUN/Creatinine Ratio 19.7 Glucose Level 180 H Calcium Level 8.0 L Total Bilirubin 0.3 Aspartate Amino Transf (AST/SGOT) 11 Alanine Aminotransferase (ALT/SGPT) 14 Alkaline Phosphatase 90 Troponin I High Sensitivity 6 8 Pro-B-Type Natriuretic Peptide 96 Total Protein 6.1 L Albumin 3.1 L Globulin 3.0 Albumin/Globulin Ratio 1.0 L Troponin I High Sens Percent Delta 33 Troponin I Hi Sens Absolute Change 2 Heart Score: Heart Score Response (Comments) Value History Slightly Suspicious 0 EKG Normal 0 Age >65 2 Risk Factors 1 or 2 risk factors 1 Troponin Normal limit 0 Total 3 Medical Decision Making Findings During the physical examination, the findings suggestive of acute life- threatening condition such as JVD, tracheal deviation, acidotic breathing, noisy stridorous breath sounds, pulses paradoxus, muffled heart sounds, unequal breath sounds, abdominal rigidity and rebound tenderness, focal neurological deficits, cool clammy skin, severe hypotension, severe tachycardia or bradycardia are absent. Patient's EKG shows sinus rhythm at a rate of 82 and normal axis and slightly prolonged QTC 534. No acute ischemic changes. His CBC showed WBC 8.5 H and H 12 and 35.3 and platelets 234. Sodium 140 potassium 3.7 chloride 107 bicarb 24.9 BUN 13 creatinine 0.66 glucose 160 troponin six BNP 96. Chest x-ray unremarkable. Her heart score is three mainly due to her age. 2nd troponin is also normal. Patient will be discharged home with H2 simon for esophagitis. DISCLAIMER Inadvertent spelling and grammatical errors,inadvertent finished stock inspector errors,syntax errors, grammatical errors, and spelling errors are likely due to EMR/dictation software use and do not reflect on the overall quality of patient care. Note that the electronic time recorded on this note does not necessarily reflect the actual time of the patient encounter. Departure Disposition: HOME / SELF CARE / HOMELESS Impression: Primary Impression: GERD (gastroesophageal reflux disease) Condition: Fair Discharge Instructions: Nonspecific Chest Pain, Adult Additional Instructions: Thank you so much for visiting [facility] Emergency room. Please ask your nurse or provider if you have questions about your care today and do not leave until all your questions have been answered. Please use any medications given as directed and follow-up with your doctor in the next 1-3 days. You may also use motrin and tylenol as needed for pain unless instructed otherwise by your provider or nurse. Indications for more urgent follow-up have been discussed, but you may return to the Emergency Department at ANY time for any worrisome or worsening symptoms. Referrals: NO PRIMARY CARE PROVIDER (PCP) Prescriptions Famotidine (Famotidine) 40 Mg Tablet 1 TAB PO HS for 30 Days, #30 TAB 1 Refill Prov: DINORAH AVILES MD 02/18/25 Education Educated: Patient, Family Educated regarding: diagnosis, treatment Signature Scribe Signature: x Attestation: DINORAH Ritchie MD February 18, 2025 09:36
[2025-02-18] MEDS: LIDOcaine 2% Viscous 15ml cup MM ONE (09:50)
[2025-02-18] MEDS: famotidine 20mg tablet PO ONE (09:51)
[2025-02-18] MEDS: mag hydrox/Alum hydrox/simeth 30ml oral suspension PO ONE (09:51)
[2025-02-18] MEDS ORDERED: FAMO40TA7 PO (11:44)
[2025-02-18 11:53] VITALS: BP 118/90; PULSE 78; RESP 13; O2SAT 100
== END 2025-02-18 12:05 | disposition home or self-care (01) ==
LOC: ER 07:32
DX: K21.9 Gastro-esophageal reflux disease without esophagitis (principal); R07.9 Chest pain, unspecified; E11.9 Type 2 diabetes mellitus without complications; E78.00 Pure hypercholesterolemia, unspecified; I11.9 Hypertensive heart disease without heart failure; I25.10 Atherosclerotic heart disease of native coronary artery without angina pectoris; J44.9 Chronic obstructive pulmonary disease, unspecified; G43.909 Migraine, unspecified, not intractable, without status migrainosus; M19.90 Unspecified osteoarthritis, unspecified site; F12.90 Cannabis use, unspecified, uncomplicated; Z88.0 Allergy status to penicillin; Z88.8 Allergy status to other drugs, medicaments and biological substances; Z90.89 Acquired absence of other organs; Z98.51 Tubal ligation status
CPT/HCPCS: 36415; 71045; 80053; 82948; 83880; 84484; 85025; 93005; 99285

== ENCOUNTER 2025-06-23 20:50 | Emergency (ER) | payer MEDICARE, MEDICAID ==
[~2025-06-23] VITALS: Ht 162.6 cm; Wt 105.9 kg
[~2025-06-23 20:50] MED LIST changes: +FAMO40TA7 PO
[2025-06-23 21:28] VITALS: TEMP 100
[2025-06-23 22:14] LABS: MEAN PLATELET VOLUME 8.8 FL (7.4-10.4); RED CELL DISTRIBUTION WIDTH 14.4 % (11.5-14.5)
[2025-06-23 22:16] LABS: CREATININE 0.79 MG/DL (0.40-0.90); TOTAL CARBON DIOXIDE 24.4 MMOL/L (24-32); eCRCL 58 ML/MIN; eGFR 72 ML/MIN
--- NOTE | 2025-06-23 22:16 | RADIOLOGY REPORT ---
EXAM: DI CHEST,SINGLE VIEW CLINICAL HISTORY: SOB TECHNIQUE: Single AP view of the chest WID: COMPARISON: DI CHEST,SINGLE VIEW on DOS: 02/18/25 FINDINGS: Lines and tubes: None Chest: The heart size and pulmonary vasculature is within normal limits. No pleural effusion, pneumothorax, or consolidation. Linear bibasilar scarring or atelectasis. The osseous structures are grossly intact. IMPRESSION: 1. No acute cardiopulmonary abnormality.
[2025-06-23] MEDS ORDERED: ipratropium/albuterol 3ml nebule NEB PRN (22:25)
[2025-06-23 23:21] LABS: LEUKOCYTE ESTERASE ,URINE SMALL (Neg); NITRITES, URINE NEGATIVE (Neg); OCCULT BLOOD,URINE SMALL (Neg)
--- NOTE | 2025-06-23 23:22 | Physician Documentation ---
History of Present Illness ~ Chief Complaint: Difficulty Breathing Stated Complaint: SOB Time Seen by MD: 22:23 Primary Medical Doctor: [facility] Mode of Arrival: Dropped Off HPI This is a very pleasant 70-year-old female with a known history of hypertension and diabetes who presents for evaluation of fever, chills, myalgias, cough, shortness a breath and chest discomfort. It all began with a sore throat two days ago. Her son was sick with the same symptoms 1st, but he was less sick. No palliating or aggravating factors. Did not attempt to treat her symptoms. Does report some nausea and vomiting. Denies diarrhea or abdominal pain. No concern for tobacco, alcohol or illicit substances use Medication Reconciliation Allergies: Coded Allergies: Penicillins (Verified Allergy, Severe, CANT BREATHE, 06/15/20) Scheduled Atorvastatin Calcium (Atorvastatin Calcium), 1 TAB PO QAM, (Reported) Diltiazem Hcl CD* (Cardizem CD*), 1 CAP PO QAM, (Reported) Famotidine (Famotidine), 1 TAB PO HS Lisinopril (Lisinopril), 1 TAB PO QPM, (Reported) Metformin Hcl* (Glucophage*), 2 TAB PO BID, (Reported) Tiotropium [place] (Spiriva), 2 PUFFS INH DAILY, (Reported) Past Medical History Past Medical History: Migraine, Coronary Artery Disease, High Cholesterol, Hypertension, Myocardial Infarction, Asthma, Bronchitis, COPD, GERD, Diabetes, Arthritis Past Surgical History: tonsillectomy, tubal ligation Other Past Family History: Coronary bypass surgery Alcohol Use: Sober Drug Use: marijuana Lives with: Family Lives In: Home Occupation: retired Review of Systems ROS 10 point review of systems was performed and unless noted above in HPI is negative for acute process/complaint. Physical Exam Vital Signs: Temperature: 100.0, Source: Oral, Heart Rate: 102, Respiratory Rate: 18, BP: 155/80, Pulse Oximetry: 96, Weight: 105.900 Physical Exam GENERAL: Awake, alert, oriented, GCS 15, no apparent distress, non-toxic appearing, answers questions, follows commands appropriately. Examined in bed 12. HEENT: Atraumatic, normocephalic, pupils equal, extraocular muscles intact, sclerae anicteric, mucus membranes moist, oropharynx is clear, no stridor. NECK: supple, full active range of motion, trachea midline, no thyromegaly, no lymphadenopathy, no JVD. CARDIOVASCULAR: Minimally tachycardic and regular rate/rhythm, no murmurs/gallops/rubs, Pulses are 2+ in all extremities and symmetric. Capillary refill less than 2 seconds. PULMONARY: Nonlabored, good air movement ,no respiratory distress, speaking in full sentences, c right-sided wheezing, no ronchi, no rales, no accessory muscle use. GASTROINTESTINAL: Soft, non-tender, non-distended, normal active bowel sounds, no organomegaly, no pulsatile masses, no CVA tenderness. NEUROLOGIC: Lucid with normal mental status. Normal facial symmetry. Moves all extremities symmetrically and with purpose. No truncal ataxia. Speech is fluid without evidence of dysarthria or aphasia, no focal deficits appreciated. MUSCULOSKELETAL: There is full range of motion of all extremities. There is no joint pain or joint swelling or joint erythema. There is no muscle pain or tenderness or swelling. EXTREMITIES: warm, well-perfused, no cyanosis, no clubbing, no edema, no acute deformities. Skin: warm, dry, no rashes or lesions, no jaundice, no petechiae orpurpura. No ecchymosis. PSYCHIATRIC: Normal affect, normal insight, normal concentration. Focused exam: [] Progress Results/Orders Results/Orders Orders - JOHN MORE DO Culture Blood (06/23/25 21:38) Chest,Single View (06/23/25 21:38) Monitor (06/23/25 21:38) Oxygen (06/23/25 21:38) Saline Lock (06/23/25 21:38) Straight Cath For Urine Sample (06/23/25 21:38) Covid19 Binax Poc Result Entry (06/23/25 22:24) Ipratropium/Albuterol Nebule (Ipratrop/A (06/23/25 22:25) Cult Urine + [place] [address] (06/23/25 23:28) Completed Orders - JOHN MORE DO Cbc/Diff (06/23/25 21:38) Chest,Single View (06/23/25 21:38) Procalcitonin (06/23/25 21:38) BMP (06/23/25 21:38) Lacticsepsis (06/23/25 21:38) Benzonatate Capsule (Tessalon Perles Cap (06/23/25 22:25) Ua W/Microscopic, Cult If Ind (06/23/25 23:01) Medications Received in ER Medications (Trade) Dose Ordered Sig/Latrice Route PRN Reason Start Time Stop Time Status Last Admin Dose Admin (Tessalon Perles capsule) 100 mg ONCE ONCE PO 06/23/25 22:25 06/23/25 22:32 DC 06/23/25 22:58 100 MG Vital Signs 06/23/25 06/23/25 06/23/25 21:28 21:49 22:58 Temp 100.0 Pulse 115 102 Resp 24 22 18 B/P (MAP) 201/110 155/80 (105) Pulse Ox 94 96 Laboratory Tests Test 06/23/25 21:03 06/23/25 21:55 06/23/25 23:01 White Blood Count 8.7 Red Blood Count 4.30 Hemoglobin 13.0 Hematocrit 38.8 Mean Corpuscular Volume 90.1 Mean Corpuscular Hemoglobin 30.2 Mean Corpuscular Hemoglobin Concent 33.5 Red Cell Distribution Width 14.4 Platelet Count 224 Mean Platelet Volume 8.8 Neutrophils (%) (Auto) 82.8 H Lymphocytes (%) (Auto) 9.4 L Monocytes (%) (Auto) 6.8 Eosinophils (%) (Auto) 0.4 Basophils (%) (Auto) 0.6 Neutrophils # (Auto) 7.2 Lymphocytes # (Auto) 0.8 L Monocytes # (Auto) 0.6 Eosinophils # (Auto) 0.0 Basophils # (Auto) 0.1 CBC Comment Sodium Level 136 Potassium Level 4.5 Chloride Level 100 Carbon Dioxide Level 24.4 Anion Gap 12 Blood Urea Nitrogen 12 Creatinine 0.79 Estimated GFR/1.73 m2 72 BUN/Creatinine Ratio 15.2 Glucose Level 134 H Calcium Level 9.2 Albumin 3.9 Procalcitonin < 0.05 Chemistry Comments Lactic Acid Level 1.9 Urine Specimen Description Cln catch midstream Urine Color Yellow Urine Clarity Clear Urine pH 6.0 Urine Specific [place] 1.010 Urine Protein Negative Urine Glucose (UA) Negative Urine Ketones Negative Urine Occult Blood Small Urine Nitrite Negative Urine Bilirubin Negative Urine Urobilinogen 0.2 Urine Leukocyte Esterase Small H Urine RBC 3-10 Urine WBC 0-4 Urine Squamous Epithelial Cells Few Urine Bacteria 1+ Urine Culture Indicated Indicated Volume Urine Centrifuged 10 ml Urine Comment SARS-CoV-2 Antigen (Rapid) Positive *A Medical Decision Making Findings Facility Status: ED Holds, [facility] process The plan was discussed with the patient, who demonstrates clear understanding of the plan and is in agreement with the plan unless otherwise noted in the chart. All questions have been answered, all concerns were addressed unless otherwise documented. I was available throughout their ED stay for frequent reassessment and questions. Differential Diagnoses (considered and possible or likely): [COVID, influenza, RSV, upper respiratory infection in the top of the viruses, bacterial pneumonia, occult bacteremia, less likely urinary tract infection. Unlikely CHF or ACS.] ??Differential Diagnoses (considered and unlikely, not requiring evaluation currently): [See above] MDM Data Please see [facility] for the following: Independent Historians and external Records Review. Historian: [Patient] Independent Historians: ?[Record review] Medication Management: [Reviewed medication list] Social History and determinants: [Reviewed] Please see the body of the note for the following: Any independent interpretations of ECG, imaging studies. All vitals signs/haemodynamics, ordered tests were independently reviewed and interpreted by myself. Nursing triage complaint and vitals reviewed, additional nursing notes were reviewed as available and I agree unless otherwise noted or documented in contradiction in the chart Vital Signs: Independently reviewed Labs: Independently interpreted Imaging: Independently interpreted Old Medical Records: Independently reviewed, see HPI for relevant summary and information Pulse Oximetry: [96% on room air] interpreted as [normal on room air] by me [Manager Assisted Living: Tachycardic Rate, Regular rhythm, no ectopy, sinus tachycardia. reviewed and interpreted by me] Additionally notably showing: [Hemodynamics reviewed. Initially tachycardic, improved. Initially hypotensive also improved. No evidence of hypoxia. Tachypnea resolved. CBC normal chemistries unremarkable. Procalcitonin is not elevated. Lactic acid is normal. UA is nondiagnostic for UTI. COVID is positive. X-ray shows no acute cardiopulmonary disease.] Tests considered but not ordered include: [Advanced imaging has been considered but does not appear to be necessary given diagnosis of COVID-19 disease] Social Determinants of Health Impact: Patient was evaluated in [facility] [place] to hea lthcare due to below par ratio of patient to medical providers. [] Comorbid Conditions Impacting Present Evaluation and Care/Treatment: [Morbid obesity, hypertension] Management Discussions with other Healthcare Providers: [None] Treatment and Disposition Medication Management (Given or considered): []. See EMR for details Consideration for Hospitalization/Escalation/Deescalation of Care: Admission for observation has been considered, [however the patient is able to tolerate p.o., their symptoms are controlled, they are able to rely on oral medications, and their chief complaint/diagnosis can be managed on outpatient basis.] ?ED Course:?[No clinical deterioration.] ?Shared decision making:?[Patient is hemodynamically stable for discharge home with follow with their primary care provider. [ ] Specific and cautious return precautions provided and discussed with full understanding. Any incidental findings were also discussed and follow up recommendations given. [] All questions answered. Patient/family were able to verbalize back return precautions. Patient/family agree to plan. Copies of imaging and laboratory studies were provided.] Code status:?FULL Please see the full Electronic Medical Record for full details of nursing documentation, medications list, other records of complete past medical history and conditions, vital signs, laboratory studies, and any radiologic study inter pretations by radiologists. Portions of this note were completed using [email or web address] dictation software and as a result there may exist minor errors in spelling. I have reviewed elements of past family and social history and agree as included in note. Departure Disposition: 01 HOME / SELF CARE / HOMELESS Impression: Primary Impression: COVID-19 Condition: Improved Discharge Instructions: Viral Illness, Adult Additional Instructions: You have COVID-19 disease. Quarantine yourself at least for five days. Make sure to hydrate plenty. Return if his symptoms worsen. Referrals: NO PRIMARY CARE PROVIDER (PCP) Education Educated: Patient Educated regarding: diagnosis, treatment, prognosis, need for follow up Signature Scribe Signature: No scribe Attestation: Date: Jun 23, 2025 Time: 23:50 This note accurately reflects clinical decisions, work performed by myself, John More, JOHN SIMMONS DO Jun 23, 2025 23:22
[2025-06-23 23:25] LABS: UA COLLECTION TYPE CLN CATCH MIDSTREAM
[2025-06-23 23:28] LABS: SQUAMOUS EPITHELIAL CELL,UR FEW /LPF (FEW)
[2025-06-24 00:12] VITALS: BP 140/88; PULSE 98; RESP 20; O2SAT 95
--- NOTE | 2025-06-25 05:00 | ELECTROCARDIOGRAPH REPORT ---
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
== END 2025-06-24 00:21 | disposition home or self-care (01) ==
LOC: ER 20:51
DX: U07.1 COVID-19 (principal); E11.9 Type 2 diabetes mellitus without complications; E78.00 Pure hypercholesterolemia, unspecified; I10 Essential (primary) hypertension; I25.10 Atherosclerotic heart disease of native coronary artery without angina pectoris; I25.2 Old myocardial infarction; J44.9 Chronic obstructive pulmonary disease, unspecified; K21.9 Gastro-esophageal reflux disease without esophagitis; M19.90 Unspecified osteoarthritis, unspecified site; F12.90 Cannabis use, unspecified, uncomplicated; F10.90 Alcohol use, unspecified, uncomplicated; Z88.0 Allergy status to penicillin; Z88.8 Allergy status to other drugs, medicaments and biological substances; Z90.89 Acquired absence of other organs; Z98.51 Tubal ligation status; Y90.9 Presence of alcohol in blood, level not specified
CPT/HCPCS: 36415; 71045; 80048; 81001; 83605; 84145; 85025; 87040; 87088; 87811; 93005; 99285